=== PATIENT | male | born 1990 | race Caucasian/White ===

== ENCOUNTER 2016-12-16 08:30 | Emergency (ER) | payer MEDICAID ==
[~2016-12-16] VITALS: Ht 182.9 cm; Wt 82.0 kg
[2016-12-16 08:32] VITALS: BP 142/82
== END 2016-12-16 12:30 | disposition left against medical advice (07) ==
LOC: ER 09:02
DX: Z53.21 Procedure and treatment not carried out due to patient leaving prior to being seen by health care provider (principal)